=== PATIENT | female | born 1975 ===

== ENCOUNTER 2018-04-18 01:04 | Emergency (ER) | payer OTHER ==
[2018-04-18 01:27] VITALS: BP 103/57; PULSE 82; RESP 16; TEMP 97.7
[2018-04-18] MEDS ORDERED: Sodium Chloride 0.9% 1,000 ML IV STA (01:27)
[2018-04-18] MEDS ORDERED: Famotidine 20mg/50ml 20 MG/50 ML BAG IVPB ONE (01:33)
--- NOTE | 2018-04-18 01:48 | ED PDOC ---
HPI: Abdomen Time Seen by Provider: 04/18/18 01:08 Chief Complaint (Nursing): Abdominal Pain Chief Complaint (Provider): Abdominal Pain History Per: Patient History/Exam Limitations: no limitations Outside of [place] travel?: No Current Symptoms Are (Timing): Still Present Location Of Pain/Discomfort: Epigastric Quality Of Discomfort: Burning Associated Symptoms: denies: Fever, Vomiting Additional Complaint(s): 42 year old female presents to ED with complaints of abdominal pain x2 hours, is at 26 weeks, and has a past medical history of hypothyroidism, hypotension, and gestational diabetes. Patient describes the pain as burning and mid-epigastric. (-) fever, vomiting, vaginal bleeding, or pain. Patient notes that she has experienced intermittent gastritis since the beginning of this but that she has never had an episode last this long. PCP: Ady Bueno Abnormal Vaginal Bleeding: No : 3 Para: 2 Past Medical History Reviewed: Historical Data, Nursing Documentation, Vital Signs Vital Signs: Last Vital Signs Temp 97.7 F 04/18/18 01:23 Pulse 82 04/18/18 03:51 Resp 16 04/18/18 03:51 BP 103/57 L 04/18/18 03:51 Pulse Ox 100 04/18/18 03:51 - Medical History PMH: Diabetes (gestational), Gastritis Other PMH: hypotension - Surgical History Surgical History: No Surg Hx - Family History Family History: States: Unknown Family Hx - Living Arrangements Living Arrangements: With Family - Social History Current smoker - smoking cessation education provided: No Ex-Smoker (has not smoked in the last 12 months): No Alcohol: None Drugs: Denies - Home Medications Home Medications: Ambulatory Orders Medication Instructions Recorded Cephalexin [cephalexin] 500 mg PO BID #14 cap 09/02/16 Methylprednisolone [Medrol Dose 4 mg PO DAILY #21 mg 09/02/16 Pack (21 tabs)] Nystatin/Triamcinolone 1 appl TP BID #1 tube 09/02/16 [Nystatin/Triamcinolone Cream] Famotidine [Pepcid] 20 mg PO BID PRN #10 tab 04/18/18 - Allergies Allergies/Adverse Reactions: Allergies Allergy/AdvReac Type Severity Reaction Status Date / Time No Known Allergies Allergy Verified 03/21/15 19:22 Review of Systems ROS Statement: Except As Marked, All Systems Reviewed And Found Negative Constitutional: Negative for: Fever Gastrointestinal: Positive for: Abdominal Pain (mid-epigastric pain). Negative for: Vomiting Genitourinary Female: Negative for: Vaginal Bleeding, Pelvic Pain Physical Exam - Reviewed Nursing Documentation Reviewed: Yes Vital Signs Reviewed: Yes - Physical Exam Appears: Positive for: Non-toxic, No Acute Distress. Negative for: Uncomfortable Skin: Positive for: Normal Color, Warm, Dry Cardiovascular/Chest: Positive for: Regular Rate, Rhythm. Negative for: Murmur Respiratory: Positive for: Normal Breath Sounds. Negative for: Respiratory Distress Gastrointestinal/Abdominal: Positive for: Soft, Tenderness (mid-epigastric tenderness), Other ((+) gravid uterus). Negative for: Normal Exam Extremity: Positive for: Normal ROM. Negative for: Deformity Neurologic/Psych: Positive for: Alert, Oriented. Negative for: Motor/Sensory Deficits - Laboratory Results Result Diagrams: 04/18/18 01:44 04/18/18 01:44 - ECG O2 Sat by Pulse Oximetry: 97 (RA) Pulse Ox Interpretation: Normal Medical Decision Making Medical Decision Makin Initial impression: gastritis Initial plan: * Labs * Lipase * NS IV * Pepcid 20mg IVP * Re-eval [id number] Labs reviewed: no clinically significant abnormalities. Patient notes improvement in symptoms and is currently tolerating PO. Patient is stable for discharge home. Dx: gastritis in Scribe Attestation: Documented by Deyanira Awan, acting as a scribe for Shoshana Vitale MD. Provider Scribe Attestation: All medical record entries made by the Scribe were at my direction and personally dictated by me. I have reviewed the chart and agree that the record accurately reflects my personal performance of the history, physical exam, medical decision making, and the department course for this patient. I have also personally directed, reviewed, and agree with the discharge instructions and disposition. Disposition - Clinical Impression Clinical Impression: Gastritis - Patient ED Disposition Is Patient to be Admitted: No Counseled Patient/Family Regarding: Studies Performed, Diagnosis, Need For Followup - Disposition Disposition: Routine/Home Disposition Time: 03:40 Condition: IMPROVED Additional Instructions: follow up with your display designer outside return to the ED with any worsening or concerning symptoms avoid spicy or acidic foods take pepcid as needed Prescriptions: Famotidine [Pepcid] 20 mg PO BID PRN #10 tab PRN Reason: Heartburn Instructions: Gastritis (DC) Forms: [facility] (Georgian)
[2018-04-18 01:54] LABS: BASO # 0.1 K/uL (0.0-0.2); BASO % 0.8 % (0.0-2.0); EOS # 0.1 K/uL (0.0-0.7); HEMOGLOBIN 11.7 g/dL (12.0-16.0); LYMPH # 2.1 K/uL (1.0-4.3); LYMPH % 19.4 % (20.0-40.0); MEAN CELL VOLUME 85.9 fl (81.0-99.0); MEAN CORPUSCULAR HEMOGLOBIN 28.8 pg (27.0-31.0); MEAN CORPUSCULAR HGB CONC 33.6 g/dL (33.0-37.0); MEAN PLATELET VOLUME 10.1 fl (7.2-11.7); MONO # 0.8 K/uL (0.0-0.8); MONO % 6.8 % (0.0-10.0); NEUT # 7.9 K/uL (1.8-7.0); NRBC % 0.1 % (0.0-0.0); RBC 4.05 Mil/uL (3.80-5.20); RED CELL DISTRIBUTION WIDTH 15.1 % (11.5-14.5)
[2018-04-18 02:03] LABS: ALBUMIN 3.5 g/dL (3.5-5.0); ALT/SGPT 21 U/L (9-52); AST/SGOT 22 U/L (14-36); BLOOD UREA NITROGEN 14 mg/dl (7-17); CALCIUM 9.3 mg/dL (8.4-10.2); GFR AFRICAN-AMERICAN > 60; GFR NON-AFRICAN AMERICAN > 60; LIPASE 156 U/L (23-300)
[2018-04-18 04:00] LABS: SQUAMOUS EPITHIAL 2 /hpf (0-5); URINE BACTERIA RARE (<OCC); URINE BILIRUBIN NEGATIVE (NEGATIVE); URINE BLOOD NEGATIVE (NEGATIVE); URINE CLARITY SLIGHTY-CLOUDY (Clear); URINE COLOR STRAW (YELLOW); URINE GLUCOSE (UA) NEG (Normal); URINE LEUKOCYTE ESTERASE LARGE Leu/uL (Negative); URINE PROTEIN NEGATIVE (NEGATIVE); URINE UROBILINOGEN 0.2-1.0 mg/dL (0.2-1.0)
[2018-04-18 05:52] VITALS: O2SAT 97
== END 2018-04-18 04:24 | disposition home or self-care (01) ==
LOC: H.ER 01:04
DX: O99.612 Diseases of the digestive system complicating pregnancy, second trimester (principal); K29.70 Gastritis, unspecified, without bleeding
CPT/HCPCS: 80053; 81003; 83690; 85025; 87086; 96361; 96374; 99285; J7030

== ENCOUNTER 2018-04-18 04:20 | Inpatient (IN) | payer OTHER ==
[2018-04-18 06:36] VITALS: BMI 34.9
[2018-04-18] MEDS ORDERED: Lactated Ringer's 1,000 ML IV SCH (09:30)
--- NOTE | 2018-04-18 10:25 | US ---
PROCEDURE: Biophysical Profile Ultrasound HISTORY: non reassuring FHR COMPARISON: None available. FINDINGS: Biophysical Profile: breathing movements - 2. movements - 2. tones - 2. Amniotic fluid - 2. Total score: 8. The placenta appears anterior with a closed cervix. Cervical length measures 4.5 cm. No definite placental abruption or previa. A viable intrauterine gestation is identified in cephalic presentation. cardiac activity measures 130 beats per minute and NEGRA measures 21.87 cm. OTHER FINDINGS: None. IMPRESSION: biophysical profile score measures 8/8. Please see details above.
[2018-04-18] MEDS ORDERED: Betamethasone Soluspan 30 mg/5mL Inj Susp IM ONE (13:30)
[2018-04-18] MEDS ORDERED: Lactated Ringer's 1,000 ML IV PRN (22:21)
[2018-04-18] MEDS: Lactated Ringer's 1,000 ML IV SCH (23:30)
[2018-04-19] MEDS ORDERED: Betamethasone Soluspan 30 mg/5mL Inj Susp IM ONE ×3 (01:00→13:31)
[2018-04-19] MEDS: Lactated Ringer's 1,000 ML IV SCH ×2 (02:00→13:03)
[2018-04-19] MEDS ORDERED: Levothyroxine 25 MCG TAB PO SCH (06:30)
--- NOTE | 2018-04-19 08:38 | OBPN ---
Datetime: 04/18/2018 15:10 IP Procedures: Sterile Vag Exam IP Progress Plan: Continue present management Membranes, Provider: Intact Contraction Comments Provider: irregular FHR - Baseline A Provider: 120's IP Progress Note Comment: 42 yo at 35 weeks w/ h/o GDM on metformin, brought to [facility] after t reatment in ED for acid reflux. FHT overall reassuring w/ occasional decelerations. BPP 8/8 this am. Discussed case w/ Dr. Carlos lin who recommended steroids, 12 hours apart and to deliver her if the decelerations persist. NICHD Accel Fetus A IP Provider: 15X15 NICHD Variability Prov Fetus A: Moderate 6-25bpm Dilatation, Provider: 0 Effacement, Provider: 0 Station, Provider: -3 NICHD Decel Fetus A IP Provider: Late Datetime: 04/18/2018 05:05 Vital Signs Provider: Reviewed; Within Normal Limits FHR Category Provider Fetus A: Category I
--- NOTE | 2018-04-19 09:50 | OBADHP ---
Datetime: 04/19/2018 09:06 IP Chief Complaint Other: Nonreassuring tracing Admit Comment, IP Provider: 42 yo at 35+3 weeks w/ EDC 05/21/2018 seen in [facility] yesterday for obstertrical clearance after receiving pepcid in ED for acid reflux. Pt was admitted for observatio n d/t occasional late declerations. The case was discussed w/ Dr. Vanessa and it was recommended th at she be given steroids 12 hours apart and then induced if the decelerations persisted. Pt received her 1st dose dose of steroids at 1:30pm yesterday and her second dose at 8 am. Late deceleration oc curred throughout last night and so the plan is to induce the pt. This pt receives her care w/ [facility]. Pt has GDM, controlled w/ metformin. PMH: Hypothyroid, GDM PSH: None Meds: Metformin 500 BID, PNVs, current course of macrobid BID x7 days, PNVs, vit B12, levothyroxin e 25 mcg daily All: NKDA Fam hx: M-breast ca, F-HTN, high cholesterol, heart dz Soc hx: pt denies tobacco, alcohol, and illicit drug use OBhx: SAB in 05/2000 , FT male, 8#10 2004 SAB 10/2005 , FT male. 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 Pt has received steroids. Plan is to induce labor. GBS unknown. Extremities - PN: Normal Abdomen - PN: Normal Back - PN: Normal Lungs - PN: Normal Heart - PN: Normal FHR - Baseline A Provider: 120 Membranes, Provider: Intact Contraction Comments Provider: irregular Vital Signs Provider: Reviewed NICHD Variability Prov Fetus A: Moderate 6-25bpm NICHD Accel Fetus A IP Provider: [id number] NICHD Decel Fetus A IP Provider: Late Dilatation, Provider: 0 Effacement, Provider: 0 Station, Provider: -3 Genitourinary Exam: Normal IP Adm Impression: , intrauterine IP Admit Plan: Initiate labor induction protocol Datetime: 04/18/2018 05:05 Pelvic Type - PN: Adequate Breast - PN: Not Done Thyroid - PN: Normal Neurologic - PN: Normal HEENT - PN: Normal General - PN: Normal IP Chief Complaint: Other FHR Category Provider Fetus A: Category I DTRs - PN: Normal EGA AdmitDate IP: 35.0
--- NOTE | 2018-04-19 11:27 | NBCIR ---
Datetime: 04/19/2018 10:03 Preformed by:: Jesse Pham DO Circumcision Request: Yes Consent Signed: Written Consent Signed and on Chart Position: Supine; Papoose Board Circumcision Time Out: Correct Patient Identity; Correct Side and Site are Marked; Accurate Procedur e Consent Form; Agreement on Procedure to be Done; Correct Patient Position Site Prep: Povidine Iodine Circumcision Date/Time: 04/19/2018 11:10 Block/Anesthestics: Emla Cream Equipment Used: [employer] Clamp Dailey Size: 1.1 Systemic Medications: Oral Medication Other Systemic Medications: Sweet Ease Status: Excellent Cosmetic Outcome; Tolerated Procedure Well; Hemostatic Parents Present: None Procedure Note: Mother requested circumcisoin to be performed. Informed consent obtained. Circumci kraen performed under technical specialist cytogenetics. Infant tolerated well Datetime: 04/18/2018 04:20 PT-NAME: MARS COOK
--- NOTE | 2018-04-19 11:31 | OBHP ---
Datetime: 04/19/2018 11:24 IP Adm Impression: , intrauterine IP Admit Plan: Admit to unit Admit Comment, IP Provider: 42 yo under observation for occassional late decelerations last at 7:40 am and variable decelerations. Patient s/p Beta x2. Plan of care discussed with MFM Dr. Vanessa. As patient AMA, GDM and Hypothyroidism with continued decelerations, Plan is for delivery at this time Patient updated regarding plan of care Pelvic Type - PN: Adequate Extremities - PN: Normal Abdomen - PN: Normal Back - PN: Normal Breast - PN: Normal Lungs - PN: Normal Heart - PN: Normal Thyroid - PN: Normal Neurologic - PN: Normal HEENT - PN: Normal General - PN: Normal Presentation-Admit: Vertex Contraction Comments Provider: irregular Gestation - Est Wks by US: 35.1 EGA AdmitDate IP: 35.1 Vital Signs Provider: Reviewed IP Chief Complaint: evaluation NICHD Variability Prov Fetus A: Moderate 6-25bpm NICHD Accel Fetus A IP Provider: 15X15 NICHD Decel Fetus A IP Provider: Late Genitourinary Exam: Normal DTRs - PN: Normal Datetime: 04/19/2018 09:06 IP Chief Complaint Other: Nonreassuring tracing FHR - Baseline A Provider: 120 Membranes, Provider: Intact IP Indication for Induction: Indicated by Testing Dilatation, Provider: 0 Effacement, Provider: 0 Station, Provider: -3 Datetime: 04/18/2018 05:05 FHR Category Provider Fetus A: Category I
[2018-04-19] MEDS ORDERED: Penicillin G Potassium 5 MU in Sodium Chloride 0.9% 50 ML IVPB ONE (17:33)
--- NOTE | 2018-04-19 17:50 | OBHP ---
Datetime: 04/19/2018 11:42 IP Adm Impression: , intrauterine IP Admit Plan: Admit to unit Admit Comment, IP Provider: Patient with IUP at 35.3 wks, AMA with GDM and Hypothyroidism, --Case again reviewed with M Dr. Vanessa and tracing discussed. As patient with continued occassional late decel (last at 7:40 am) and variables[facility]. Patient s/p Betamethasone x 2. --Plan of care reviewed with patient and FOB and they agree. All questions answered. --Patient for admission and IOL at this time FHR - Baseline A Provider: 130 Membranes, Provider: Intact EGA AdmitDate IP: 35.3 Vital Signs Provider: Reviewed; Within Normal Limits IP Chief Complaint: evaluation NICHD Variability Prov Fetus A: Moderate 6-25bpm NICHD Accel Fetus A IP Provider: [id number] FHR Category Provider Fetus A: Category II NICHD Decel Fetus A IP Provider: Late; Variable Dilatation, Provider: 0
--- NOTE | 2018-04-19 18:23 | OBPN ---
Datetime: 04/19/2018 17:55 Pool Provider: Negative Contraction Comments Provider: 3-5m FHR - Baseline A Provider: 120 IP Fetus A Comments: Prolonged ?decel 5min with recovery on left side Presentation-Admit: Vertex IP Progress Note Comment: Pt given dose of cytotec at 5 PM; and started to feel contractions Notified decels, however, recovered Pt examined by Dr. Pham: closed Pt instructed to NPO Observe progress case dw Dr. Vero Siddiqi MD [facility]...notified of decel noted. She was given O2 and placed in left lateral posi tion. FH tracing recovered. WIll observe FH tracing. Hold Cytotec (given two doses)...[facility]ospital lily mmary : She was initially brought from ER yesterday morning and checked by Dr Fitzgerald. Decels noted an d monitored. Later in the morning, she was placed on OBSERVATION, BPP done and it was 8/8 but occasi onally decels persisted. MFM consulted by Dr Sales and Betamethasone x [address] Clayton-Bhavin luu also contacted him/start IOL. NICHD Accel Fetus A IP Provider: 15X15 FHR Category Provider Fetus A: Category II Dilatation, Provider: 0 Datetime: 04/19/2018 11:42 IP Progress Impression: Non-reassuring heart rate IP Informed Consent Obtain: Vaginal Delivery IP Procedures: Sterile Vag Exam IP Progress Plan: Induction Membranes, Provider: Intact Vital Signs Provider: Reviewed; Within Normal Limits NICHD Variability Prov Fetus A: Moderate 6-25bpm NICHD Decel Fetus A IP Provider: Late; Variable Datetime: 04/19/2018 11:24 Gestation - Est Wks by US: 35.3 Datetime: 04/19/2018 09:06 Effacement, Provider: 0 Station, Provider: -3
[2018-04-19] MEDS ORDERED: Oxytocin 30 units/LR 500ML 30 U/500 ML BAG IV ONE (18:33)
[2018-04-19] MEDS ORDERED: ceFAZolin IV 2 gm in Dextrose 2 GM/50 ML BAG IVPB ONE ×2 (18:35→18:45)
--- NOTE | 2018-04-19 18:41 | OBPN ---
Datetime: 04/19/2018 18:30 IP Informed Consent Obtain: Section Delivery; Risks, Benefits and Alternatives Discussed IP Progress Plan: Deliver- Section IP Progress Note Comment: Notified that another deceleration occured at 18:24pm lasting 4-5min... wi th decelrations remoted from delivery, I spoek with patient about her condition and deliveyr by C/S. She understands and informed cosent obtained. Prep for C/S
[2018-04-19] MEDS ORDERED: Morphine 1 mg/ml preservative-free Inj(Duramorph) ONE (18:42)
--- NOTE | 2018-04-19 19:19 | OBHP ---
Datetime: 04/19/2018 17:55 Presentation-Admit: Vertex IP Fetus A Comments: Prolonged ?decel 5min with recovery on left side FHR - Baseline A Provider: 120 Contraction Comments Provider: 3-5m Pool Provider: Negative NICHD Accel Fetus A IP Provider: 15X15 FHR Category Provider Fetus A: Category II Dilatation, Provider: 0 Datetime: 04/19/2018 11:42 EGA AdmitDate IP: 35.3 Datetime: 04/19/2018 11:24 Gestation - Est Wks by US: 35.3 Datetime: 04/18/2018 05:05 Admit Comment, IP Provider: 42 yo at 35+2 weeks w/ EDC 05/21/2018 was sent to [facility] for obste rtrical clearance after receiving pepcid in ED for acid reflux. Pt denies ctxns, LOF and VB and repo rts FM. This pt receives her care w/ [facility]. Pt has GDM, controlled w/ metformin. PMH: Hypothyroid, GDM PSH: None Meds: Metformin 500 BID, PNVs, current course of macrobid BID x7 days, PNVs, vit B12, levothyroxin e 25 mcg daily All: NKDA Fam hx: M-breast ca, F-HTN, high cholesterol, heart dz Soc hx: pt denies tobacco, alcohol, and illicit drug use OBhx: SAB in 05/2000 , FT male, 8#10 2005 SAB 10/2005 , FT male. 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 Will obtain BPP and follow the heart tracing.
[2018-04-19] MEDS ORDERED: Phenylephrine 10 mg/ml Inj ONE (19:22)
[2018-04-19] MEDS ORDERED: Oxycodone/Acetaminophen 5/325 mg Tab PO PRN ×2 (19:47→22:58)
[2018-04-19] MEDS ORDERED: DiphenhydrAMINE 50 mg/ml Inj IVP PRN ×2 (20:46→22:58)
[2018-04-19] MEDS ORDERED: Naloxone 0.4 mg/ml Inj (Adult) IVP PRN (20:46)
[2018-04-19] MEDS ORDERED: Lactated Ringer's 1,000 ML IV SCH (22:58)
[2018-04-20] MEDS: Levothyroxine 25 MCG TAB PO SCH (06:19)
[2018-04-20 06:47] LABS: HEMOGLOBIN 10.1 g/dL (12.0-16.0); MEAN CELL VOLUME 86.9 fl (81.0-99.0); MEAN CORPUSCULAR HEMOGLOBIN 28.4 pg (27.0-31.0); MEAN CORPUSCULAR HGB CONC 32.7 g/dL (33.0-37.0); RBC 3.56 Mil/uL (3.80-5.20); RED CELL DISTRIBUTION WIDTH 15.7 % (11.5-14.5); WHITE BLOOD COUNT 14.2 K/uL (4.8-10.8)
--- NOTE | 2018-04-20 08:22 | OBDS ---
DELIVERY PERSONNEL Delivery Doctor: Rebeca Pham DO Advanced Practice Psychiatric Nurse: Jamila Dodson RN Anesthesiologist: Kaylyn Mandel MD Resident: Dr. Siddiqi,OBR MATERNAL INFORMATION Delivery Anesthesia: Spinal Medications in Delivery: Pitocin 30 mu/500 mL, Pitocin 20 mu/1000 mL Estimated Blood Loss (ml): 800 Placenta Cultured: Yes Maternal Complications: Abruptio Placenta Other Maternal Complications: Early placenta Abruption RN Comments: Report taken in OR from Jamila Dodson RN and Eleni Newton to Harman wylie At 1925. Cord Blood PH asked to be taken by Dr Pham. Cord blood unavialable to obtain cord section from michele butler MD aware. Provider Comments: PreOp Dx: repetitive decelerations remote from delivery Post Op Dx same; early abruption Procedure: Primary LTCS via Pfannenstiel incision Surgeon Dr Pham Asst: Dr Turner Asst Dr Siddiqi Anest: Dr Mandel Anest: spinal Finding: -live male infant delivered from [facility] presentatoin/vacum assisted (one time/no pop off) -blood tinged AF -placenta delivered intact manually/uterus not exteriorized -Ovaries and tubes WNL -She remanied stable -all equipment, sponges and needles accounted for EBL 800cc LABOR SUMMARY EDC: 05/21/2018 00:00 No. Babies in Womb: 1 Attempted: No Labor Anesthesia: None LABOR INFORMATION Reason for Induction: Maternal Diabetes; Other Reason for Induction Other: deceleration Cervical Ripening Agents: Cytotec @ Oxytocin: N/A Group B Beta Strep: Done, Result Unknown Antibiotics # of Doses: 1 Antibiotics Time of Last Dose: 1900 Steroids Given: Full Course; < 24 Hours before Delivery Reason Steroids Not Administered: Indication MEMBRANES Membranes Rupture Method: Artificial Rupture of Membranes: 04/19/2018 19:08 Length of Rupture (hrs): 0.02 Amniotic Fluid Color: Clear Amniotic Fluid Amount: Moderate Amniotic Fluid Odor: None STAGES OF LABOR Stage 3 hrs: 0 Stage 3 min: 1 CSECTION DELIVERY Primary Indication: Nonreassuring Status Other Primary Indication: deceleratoin remote from delivery Secondary Indication: Early Abruptio Placenta CSection Urgency: Non Elective CSection Incidence: Primary Labor: No Labor Elective: Nonelective CSection Incision: Lower Uterine Transverse Uterine Closure: Double-layer closure BABY A INFORMATION Delivery Date/Time: 04/19/2018 19:09 Method of Delivery: Born in Route : No : N/A Forceps: N/A Vacuum Extraction: Successful Shoulder Dystocia : No ASSISTED DELIVERY BABY A Vacuum Number of Pulls: 1 Vacuum Number of PopOffs: 0 Total Time Vacuum Applied: 20 seconds Vacuum/Forceps Comment: kiwi applied in OR by Dr Turner at 190. Head delivered at 190. Baby boy d elivered at 1908. SHOULDER DYSTOCIA BABY A Infant Delivery Date/Time: 04/19/2018 19:09 PRESENTATION/POSITION BABY A Presentation: Cephalic Cephalic Presentation: Vertex Breech Presentation: N/A PLACENTA INFORMATION BABY A Placenta Delivery Time : 04/19/2018 19:10 Placenta Method of Delivery: Manual Removal Placenta Status: Delivered SCORES BABY A Heart Rate 1 min: >100 bpm Resp Effort 1 min: Good Cry Reflex Irritability 1 min: Cough or Sneeze or Pulls Away Muscle Tone 1 min: Active Motion Color 1 min: Body [place], Extremities Blue Resuscitation Effort 1 min: N/A SCORE 1 MIN: 9 Heart Rate 5 min: >100 bpm Resp Effort 5 min: Good Cry Reflex Irritability 5 min: Cough or Sneeze or Pulls Away Muscle Tone 5 min: Active Motion Color 5 min: Body [place], Extremities Blue Resuscitation Effort 5 min: N/A SCORE 5 MIN: 9 INFORMATION BABY A Gestational Age at Delivery: 35.0 Gestational Status: Outcome : Liveborn Infant Condition : Stable Sex: Male IDENTIFICATION/MEDS BABY A ID Band Number: [id number] ID Band Location: Left Leg; Left Arm WEIGHT/LENGTH BABY A Infant Birthweight (gms): 2770 Infant Weight (lb): 6 Infant Weight (oz): 2 CORD INFORMATION BABY A No. Cord Vessels: 3 Nuchal Cord : N/A Cord Blood Taken: Yes Infant Suction: Mouth; Nose ASSESSMENT BABY A Complications: Multiple Late Decels Physical Findings at Delivery: Within Normal Limits Aerospace Technician/ALS Called : No Infant Care By: DR Main Transferred To: Remains with Mother
--- NOTE | 2018-04-20 08:23 | OBDS ---
DELIVERY PERSONNEL Delivery Doctor: Rebeca Pham DO Commodity Lead: Jamila Dodson RN Anesthesiologist: Kaylyn Mandel MD Resident: Dr. Siddiqi,OBR MATERNAL INFORMATION Delivery Anesthesia: Spinal Medications in Delivery: Pitocin 30 mu/500 mL, Pitocin 20 mu/1000 mL Estimated Blood Loss (ml): 800 Placenta Cultured: Yes Maternal Complications: Abruptio Placenta Other Maternal Complications: Early placenta Abruption RN Comments: Report taken in OR from Jamila Dodson RN and Eleni Newton to [facility] wylie At 1925. Cord Blood PH asked to be taken by Dr Pham. Cord blood unavialable to obtain cord section from michele butler MD aware. Provider Comments: PreOp Dx: repetitive decelerations remote from delivery Post Op Dx same; early abruption Procedure: Primary LTCS via Pfannenstiel incision Surgeon Dr Pham Asst: Dr Turner Asst Dr Siddiqi Anest: Dr Mandel Anest: spinal Finding: -live male infant delivered from [facility] presentatoin/vacum assisted (one time/no pop off) -blood tinged AF -placenta delivered intact manually/uterus not exteriorized -Ovaries and tubes WNL -She remanied stable -all equipment, sponges and needles accounted for EBL 800cc LABOR SUMMARY EDC: 05/21/2018 00:00 EDC: 05/23/2018 00:00 No. Babies in Womb: 1 Attempted: No Labor Anesthesia: None LABOR INFORMATION Reason for Induction: Maternal Diabetes; Other Reason for Induction Other: deceleration Cervical Ripening Agents: Cytotec @ Oxytocin: N/A Group B Beta Strep: Done, Result Unknown Antibiotics # of Doses: 1 Antibiotics Time of Last Dose: 1900 Steroids Given: Full Course; < 24 Hours before Delivery Reason Steroids Not Administered: Indication MEMBRANES Membranes Rupture Method: Artificial Rupture of Membranes: 04/19/2018 19:08 Length of Rupture (hrs): 0.02 Amniotic Fluid Color: Clear Amniotic Fluid Amount: Moderate Amniotic Fluid Odor: None STAGES OF LABOR Stage 3 hrs: 0 Stage 3 min: 1 CSECTION DELIVERY Primary Indication: Nonreassuring Status Other Primary Indication: deceleratoin remote from delivery Secondary Indication: Early Abruptio Placenta CSection Urgency: Non Elective CSection Incidence: Primary Labor: No Labor Elective: Nonelective CSection Incision: Lower Uterine Transverse Uterine Closure: Double-layer closure BABY A INFORMATION Delivery Date/Time: 04/19/2018 19:09 Method of Delivery: Born in Route : No : N/A Forceps: N/A Vacuum Extraction: Successful Shoulder Dystocia : No ASSISTED DELIVERY BABY A Vacuum Number of Pulls: 1 Vacuum Number of PopOffs: 0 Total Time Vacuum Applied: 20 seconds Vacuum/Forceps Comment: kiwi applied in OR by Dr Turner at 190. Head delivered at 190. Baby boy d elivered at 190. SHOULDER DYSTOCIA BABY A Delivery Date/Time: 04/19/2018 19:09 PRESENTATION/POSITION BABY A Presentation: Cephalic Cephalic Presentation: Vertex Breech Presentation: N/A PLACENTA INFORMATION BABY A Placenta Delivery Time : 04/19/2018 19:10 Placenta Method of Delivery: Manual Removal Placenta Status: Delivered SCORES BABY A Heart Rate 1 min: >100 bpm Resp Effort 1 min: Good Cry Reflex Irritability 1 min: Cough or Sneeze or Pulls Away Muscle Tone 1 min: Active Motion Color 1 min: Body [place], Extremities Blue Resuscitation Effort 1 min: N/A SCORE 1 MIN: 9 Heart Rate 5 min: >100 bpm Resp Effort 5 min: Good Cry Reflex Irritability 5 min: Cough or Sneeze or Pulls Away Muscle Tone 5 min: Active Motion Color 5 min: Body [place], Extremities Blue Resuscitation Effort 5 min: N/A SCORE 5 MIN: 9 INFANT INFORMATION BABY A Gestational Age at Delivery: 35.0 Gestational Status: Infant Outcome : Liveborn Infant Condition : Stable Sex: Male IDENTIFICATION/MEDS BABY A ID Band Number: [id number] ID Band Location: Left Leg; Left Arm WEIGHT/LENGTH BABY A Infant Birthweight (gms): 2770 Infant Weight (lb): 6 Weight (oz): 2 CORD INFORMATION BABY A No. Cord Vessels: 3 Nuchal Cord : N/A Cord Blood Taken: Yes Suction: Mouth; Nose ASSESSMENT BABY A Complications: Multiple Late Decels Physical Findings at Delivery: Within Normal Limits Timber Treatment Plant Operator/ALS Called : No Care By: DR Main Transferred To: Remains with Mother
[2018-04-20] MEDS ORDERED: Multivitamin With Minerals Tab PO SCH (09:00)
[2018-04-20] MEDS: Multivitamin With Minerals Tab PO SCH (09:54)
[2018-04-20] MEDS ORDERED: Simethicone 80 mg Chewtab PO PRN (12:30)
--- NOTE | 2018-04-20 18:01 | OBPPN ---
Datetime: 04/20/2018 06:05 PP Pain Prov: Within normal limits PP Nausea Prov: Denies PP Flatus Prov: No PP BM Prov: No PP Breasts Prov: Normal PP Heart Prov: Normal PP Lungs Prov: Normal PP Abdomen/Uterus Prov: Normal PP Lochia Prov: Normal PP Vulva/Perineum Prov: Not Done PP CVA Tenderness Prov: Not Done PP Extremities Prov: Normal PP C/S Incision Prov: Normal PP Progress Prov: Normal PP Comments Phys Exam Prov: hgb 10.1 PP Impression Prov: Normal progression PP Plan Prov: Continue present management PP Progress Note Prov: S: Patient see and examined this morning at the bedside, laying comfortably o n bed. Pain is well controlled by medications, encourage ambulation, tolerating PO well. Dressing loo ks intact and clean, + gas but no BM yet. Patient denies too much bleeding. Denies chest pain, dyspne a, n/v, fever/chills, diarrhea, nausea/vomiting, and calf pain. VSS, afebrile Gen: Awake, alert. NAD Lungs: CTA B/L, no wheezing, rhonci, or rales CVS: RRR, S1, S2 no murmurs Abd: ND, -BS, soft abdomen, firm fundus at umbilical level. Dressing in place clean and intact. Ext: No edema, neg calf tenderness Neuro/psych: AAOx3, no grossly focal deficit, preserved affect and mood. A/P: 42 yo , s/p C- section on 04/19/18. Doing well on POD 1. -Advance diet as tolerated -OOB with caution SCDs for DVT prophylaxis -C/w Percocet 5/325 mg and Ibuprofen 600 mg for pain prn -C/w Colace 100mg PO BID PRN -Encourage and ambulation -PP H/H pending -Anticipated d/c on 04/22/18 YBecerra PGY-1 obh addendum pt seen and examined b me. agree with above assessment and plan. IP PP Procedures: None Vital Signs Provider PP: Reviewed; Within Normal Limits
[2018-04-20 18:12] LABS: SQUAMOUS EPITHIAL 1 /hpf (0-5); URINE BACTERIA RARE (<OCC); URINE BILIRUBIN NEGATIVE (NEGATIVE); URINE BLOOD MODERATE (NEGATIVE); URINE CLARITY SLIGHTY-CLOUDY (Clear); URINE COLOR STRAW (YELLOW); URINE GLUCOSE (UA) NEG (Normal); URINE LEUKOCYTE ESTERASE NEG Leu/uL (Negative); URINE PROTEIN NEGATIVE (NEGATIVE); URINE UROBILINOGEN 0.2-1.0 mg/dL (0.2-1.0)
[2018-04-21] MEDS: Docusate-Senna 50 mg-8.6 mg Tab PO SCH ×2 (06:11→06:33)
[2018-04-21] MEDS: Levothyroxine 25 MCG TAB PO SCH (06:32)
[2018-04-21] MEDS: Multivitamin With Minerals Tab PO SCH (08:10)
--- NOTE | 2018-04-21 08:41 | OP ---
PROCEDURE DATE: 04/19/2018 PREOPERATIVE DIAGNOSIS: Repetitive decelerations remote from delivery. POSTOPERATIVE DIAGNOSES: 1. Repetitive decelerations remote from delivery. 2. Early abruption. PROCEDURE: Primary low transverse section via Pfannenstiel incision. SURGEON: Arian Pham DO SIDE STAPLER: Rayo Turner MD (Dr. Rayo Turner is an HOME DAY CARE PROVIDER physician who happened to be available to assist on this difficult case. He was in the hospital. He was present during the procedure from the time of incision to delivery of the to the closure of the skin. His presence was vital and necessary for the procedure). SECOND SIDE STAPLER: Dr. Siddiqi, PGY-1 ANESTHESIOLOGIST: Dr. Mandel ANESTHESIA: Spinal. OPERATIVE FINDINGS: Live male delivered from the cephalic presentation with vacuum assistance once. No pop-off. Blood tinged amniotic fluid was noted. Placenta was delivered intact manually. Appeared to be an early abruption. Uterus is not exteriorized. Ovaries and tubes appeared to be within normal limits grossly. All equipments, sponges, and needle accounted for. She remained hemodynamically stable throughout the procedure. ESTIMATED BLOOD LOSS: 800 mL. DESCRIPTION OF PROCEDURE: was brought to the operating room. After successful spinal anesthesia, she was placed in a supine position. heart rate was noted to be above 154 beats per minute. Catheter placed in the bladder and noted to be draining clear urine. Compression boots were placed on both lower extremities. She was then draped and prepped in the usual sterile manner. Once adequate anesthesia was obtained, a Pfannenstiel incision was made using a scalpel. This incision was then taken down to underlying fascia using electrocautery. Fascia was nicked in the midline and extended bilaterally using electrocautery. Inferior aspect of the fascia was grasped using 2 Nemesio clamps and tented up, and the rectus muscle was both bluntly and sharply dissected. The same was done with the superior aspect of the fascia. In the midline superiorly, rectus muscle was noted to have an opening. This was bluntly dissected down to the suprapubic area. Two Sharonda clamps were used to tent up the peritoneum and then incised using Metzenbaum scissors. The incision was then extended superiorly and inferiorly with direct visualization of the bladder and intestines. A bladder blade was then inserted. An incision was made above the bladder line on the uterus and the peritoneum and using Metzenbaum scissors then extended bilaterally. Bladder blade was then inserted behind the bladder flap after it was created digitally. A low transverse incision was made using a scalpel. Upon entering the uterus, the incision was then extended bilaterally using bandage scissors. Noting the amniotic sac noted to be discolored. Once rupture of membranes was performed, blood tinged amniotic fluid was noted. The was then delivered. This was done by initially attempting to deliver the infant's head. Incision on the skin and the muscle was extended #1 on the skin using scalpel and then second using bandage scissors on rectus muscle. Thereafter, decision was made to use a Kiwi. Kiwi vacuum was then used one time, no pop-off. Infant head was delivered as atraumatically as possible. was crying spontaneously. Bulb suctioned nasopharyngeally. The remainder of the infant was then delivered as atraumatic as possible. was crying spontaneously. Cord was clamped and cut. Infant was handed to the pediatricians in attendance. Cord bloods were obtained as well as cord pH. Placenta was delivered and intact manually. Noted to be a sign of early abruption. Noted to have blood clot along the edge. Uterus was left into the peritoneal cavity. Lower uterine aspect was grasped using two T-clamps and two Allis clamps. Uterus cleared of debris and clots. Good contracted uterus was noted. A 0 Vicryl suture was used to close the first layer of the uterus in an interlocking fashion. Second layer of the uterus was closed using 0 Vicryl suture imbricating the first layer. Good hemostasis was assured. Copious irrigation was performed. We identified both ovaries and fallopian tubes bilaterally. Noted to be within normal limits. All equipment was removed and accounted for. Lower uterine segment was noted to have good hemostasis before closure. A 0 Vicryl suture was used to approximate the peritoneum in a running fashion. Rectus muscle was noted to have good hemostasis. A 0 Vicryl suture was used to approximate the rectus muscle on the left side in a [id number] fashion x2 as well as on the right side. Fascia was then approximated using 0 Vicryl suture in a running fashion. Irrigation was performed. Hemostasis was assured in subcuticular layer. A 2-0 plain suture was used to approximate the subcuticular layer x3. A 3-0 Vicryl suture was used to approximate the skin. Dermabond, Steri-Strips, and pressure bandage were applied. She tolerated the procedure well and was transferred to the recovery room in stable condition. All equipments, sponges and needles accounted for. Arian Pham DO
--- NOTE | 2018-04-21 15:28 | OBPPN ---
Datetime: 04/21/2018 06:12 PP Pain Prov: Within normal limits PP Nausea Prov: Denies PP Flatus Prov: Yes PP BM Prov: No PP Breasts Prov: Not Done PP Heart Prov: Normal PP Lungs Prov: Normal PP Abdomen/Uterus Prov: Normal PP Lochia Prov: Normal PP Vulva/Perineum Prov: Not Done PP CVA Tenderness Prov: Not Done PP Extremities Prov: Normal PP C/S Incision Prov: Normal PP Progress Prov: Normal PP Impression Prov: Normal progression PP Plan Prov: Continue present management PP Progress Note Prov: S: Patient see and examined this morning at the bedside, laying comfortably o n bed. Pain is well controlled by medications, encourage ambulation, tolerating PO well. Dressing rem raj yesterday, incision looks dry and clean. + gas but no BM yet. Patient denies too much bleeding. Denies chest pain, dyspnea, n/v, fever/chills, diarrhea, nausea/vomiting, and calf pain. VSS, afebrile Gen: Awake, alert. NAD Lungs: CTA B/L, no wheezing, rhonci, or rales CVS: RRR, S1, S2 no murmurs Abd: ND, -BS, soft abdomen, firm fundus at umbilical level. Incision c/d/i, no exudates or erythem a. Ext: No edema, neg calf tenderness Neuro/psych: AAOx3, no grossly focal deficit, preserved affect and mood. A/P: 42 yo , s/p C- section on 04/19/18. Doing well on POD 2. -Advance diet as tolerated -OOB with caution SCDs for DVT prophylaxis -C/w Percocet 5/325 mg and Ibuprofen 600 mg for pain prn -C/w Colace 100mg PO BID PRN -Encourage and ambulation -PP H/H 10.1/30.9 -Anticipated d/c on 04/22/18 YBecerra PGY-1 Patient seen and evaluated by me this am. Agree with above residdent note. --Dr. Gustavo Sheehan IP PP Procedures: None Vital Signs Provider PP: Reviewed; Within Normal Limits
[2018-04-22] MEDS: Docusate-Senna 50 mg-8.6 mg Tab PO SCH (02:31)
[2018-04-22] MEDS: Levothyroxine 25 MCG TAB PO SCH (06:29)
[2018-04-22] MEDS: Multivitamin With Minerals Tab PO SCH (08:11)
--- NOTE | 2018-04-22 09:12 | OBPPN ---
Datetime: 04/22/2018 06:02 PP Pain Prov: Within normal limits PP Nausea Prov: Denies PP Flatus Prov: Yes PP BM Prov: Yes PP Breasts Prov: Not Done PP Heart Prov: Normal PP Lungs Prov: Normal PP Abdomen/Uterus Prov: Normal PP Lochia Prov: Normal PP Vulva/Perineum Prov: Not Done PP CVA Tenderness Prov: Not Done PP Extremities Prov: Normal PP C/S Incision Prov: Normal PP Progress Prov: Normal PP Impression Prov: Normal progression PP Plan Prov: Discharge PP Progress Note Prov: S: Patient see and examined this morning at the bedside, laying comfortably o n bed. Pain is well controlled by medications, encourage ambulation, tolerating PO well. Voiding w/o difficulty and normal BM yesterday. Patient denies too much bleeding. Denies chest pain, dyspnea, n/v , fever/chills, diarrhea, nausea/vomiting, and calf pain. VSS, afebrile Gen: Awake, NAD Lungs: CTA B/L, no wheezing CVS: RRR, S1, S2 no murmurs Abd: soft, ND, +BS, uterus firm at umbilical level, incision C/D/I no exudates or bruises. Ext: No edema, neg calf tenderness Neuro/psych: AAOx3, no focal deficit, preserved affect and mood. A/P: 42 yo , s/p C- section on 18. Doing well on POD 3. -Regular diet as tolerated -OOB with caution -Percocet 5/325 mg and Ibuprofen 600 mg for pain prn -Colace 100mg PO BID PRN -Encourage and ambulation -PP H/H 10.1/30.9 -Discharge home today. Sanaz PGY-1 OB Hospitalist on-call. Pt seen and examined by me on rounds. Agree with PGY1 note [facility]NDO D/C home IP PP Procedures: None Vital Signs Provider PP: Reviewed; Within Normal Limits
--- NOTE | 2018-04-22 09:12 | OBDCSUM ---
Datetime: 04/22/2018 06:03 Discharged to, Provider: Home Follow up at, Provider: Dr Sheehan Disch Instr Activity: May Shower Disch Instr Diet: Regular Discharge Instructions, Provider: Routine instructions given Discharge Diagnosis, Provider: Delivery Discharge Time: 04/22/2018 10:00 Follow up in weeks, Provider: 1 and 6 weeks Disch Referrals: None Contraception discussed, Prov: Yes Disch Activity Restrictions: No exercising; No lifting; Minimize stair-climbing; No sexual activity; Nothing in vagina - [place], tampons, douche Discharge Comment, Provider: EGA: 35.2 weeks Diagnosis: epigastric pain, stat due to late decelerations RF: AMA, HTN, GDM DOL: 04/19/18 at 19:09 NB: M : 07[birth year] Weight: 2770 g PP summary: No serious complications during PP. Lochia= menses, mild pain, controlled with medicat ions. Rubella: immune. Blood type: O+ CBC pp: Discharge Date: 04/22/2018 at 10 am Discharge Instructions: -encourage -Ibuprofen/percocet for pain PRN -Senokot for constipation -Ambulate as tolerated -f/u NB visit and PP visit Discharge Diagnosis Prov Other: Decelrations remote from delivery Contraception after Delivery: Tubal Ligation
[2018-04-22 18:50] VITALS: BP 114/63; PULSE 77; RESP 20; TEMP 98.7; O2SAT 98
== END 2018-04-22 13:16 | disposition home or self-care (01) | DRG 651 ==
LOC: H.EROB2 04:20 → H.L&D 18:37 → OBSVTOIN 04-19 11:36 → H.L&D 04-19 13:03 → H.OB/GYN 04-19 22:27
PROVIDERS: ADMIT Obstetrics & Gynecology; ATTEND Obstetrics & Gynecology
PROC: 10D00Z1 Extraction of Products of Conception, Low, Open Approach (ICD-10-PCS; principal; 2018-04-19)
PROC: 4A1HXCZ Monitoring of Products of Conception, Cardiac Rate, External Approach (ICD-10-PCS; 2018-04-19)
DX: O60.14X0 Preterm labor third trimester with preterm delivery third trimester, not applicable or unspecified (principal); O45.93 Premature separation of placenta, unspecified, third trimester; O24.415 Gestational diabetes mellitus in pregnancy, controlled by oral hypoglycemic drugs; O76 Abnormality in fetal heart rate and rhythm complicating labor and delivery; O99.62 Diseases of the digestive system complicating childbirth; K21.9 Gastro-esophageal reflux disease without esophagitis; O99.284 Endocrine, nutritional and metabolic diseases complicating childbirth; E03.9 Hypothyroidism, unspecified; Z37.0 Single live birth; Z3A.35 35 weeks gestation of pregnancy; O09.523 Supervision of elderly multigravida, third trimester

== ENCOUNTER 2018-07-25 22:01 | Emergency (ER) | payer OTHER ==
[2018-07-25 22:02] VITALS: BMI 34.9
[2018-07-25 22:39] VITALS: RESP 18; TEMP 98.4
[2018-07-25] MEDS ORDERED: Sodium Chloride 0.9% 1,000 ML IV STA (22:50)
[2018-07-25 23:05] LABS: SQUAMOUS EPITHIAL 10 /hpf (0-5); URINE BACTERIA RARE (<OCC); URINE BILIRUBIN NEGATIVE (NEGATIVE); URINE BLOOD NEGATIVE (NEGATIVE); URINE CLARITY CLOUDY (Clear); URINE COLOR YELLOW (YELLOW); URINE GLUCOSE (UA) NEG (Normal); URINE LEUKOCYTE ESTERASE MOD Leu/uL (Negative); URINE PROTEIN 30 mg/dL (NEGATIVE); URINE UROBILINOGEN 0.2-1.0 mg/dL (0.2-1.0)
[2018-07-25 23:09] LABS: BASO # 0.1 K/uL (0.0-0.2); BASO % 0.7 % (0.0-2.0); EOS # 0.1 K/uL (0.0-0.7); EOS % 1.5 % (0.0-4.0); HEMOGLOBIN 13.1 g/dL (12.0-16.0); LYMPH # 2.5 K/uL (1.0-4.3); LYMPH % 30.1 % (20.0-40.0); MEAN CELL VOLUME 86.3 fl (81.0-99.0); MEAN CORPUSCULAR HEMOGLOBIN 29.4 pg (27.0-31.0); MEAN CORPUSCULAR HGB CONC 34.1 g/dL (33.0-37.0); MEAN PLATELET VOLUME 9.2 fl (7.2-11.7); MONO # 0.5 K/uL (0.0-0.8); MONO % 6.2 % (0.0-10.0); NEUT % 61.5 % (50.0-75.0); RBC 4.44 Mil/uL (3.80-5.20); RED CELL DISTRIBUTION WIDTH 15.6 % (11.5-14.5); WHITE BLOOD COUNT 8.2 K/uL (4.8-10.8)
--- NOTE | 2018-07-25 23:12 | ED PDOC ---
HPI: Female Pain Time Seen by Provider: 07/25/18 22:39 Chief Complaint (Nursing): Female Genitourinary Chief Complaint (Provider): abdominal pain History Per: Patient History/Exam Limitations: no limitations Onset/Duration Of Symptoms: Hrs (x20) Additional Complaint(s): Janette Price, a 42 year old female with past medical history of kidney stones, presents to the emergency department with constant right sided abdominal pain onset 20 hours ago. Patient states she vomited once and has moderate relief with Advil and says the pain is similar to that which she felt with kidney stones. She reports giving 3 months ago and is currently breast feeding. Patient denies constipation, diarrhea, dysuria or hematuria. No further medical complaints. Past Medical History Reviewed: Historical Data, Nursing Documentation, Vital Signs Vital Signs: Last Vital Signs Temp 98.4 F 07/25/18 22:33 Pulse 68 07/25/18 22:33 Resp 18 07/25/18 22:33 BP 122/82 07/25/18 22:33 Pulse Ox 99 07/25/18 22:33 - Medical History PMH: Diabetes (gestational), Gastritis, Kidney Stones Denies: Depression, HTN - Surgical History Surgical History: No Surg Hx - Family History Family History: States: Unknown Family Hx - Home Medications Home Medications: Ambulatory Orders Medication Instructions Recorded Cephalexin [cephalexin] 500 mg PO BID #14 cap 09/02/16 Methylprednisolone [Medrol Dose 4 mg PO DAILY #21 mg 09/02/16 Pack (21 tabs)] Nystatin/Triamcinolone 1 appl TP BID #1 tube 09/02/16 [Nystatin/Triamcinolone Cream] Famotidine [Pepcid] 20 mg PO BID PRN #10 tab 04/18/18 Naproxen [Naprosyn] 500 mg PO BID PRN #15 tablet 07/26/18 Nitrofurantoin Macrocrystals 100 mg PO BID #13 cap 07/26/18 [Macrobid] - Allergies Allergies/Adverse Reactions: Allergies Allergy/AdvReac Type Severity Reaction Status Date / Time No Known Allergies Allergy Verified 03/21/15 19:22 Review of Systems ROS Statement: Except As Marked, All Systems Reviewed And Found Negative Constitutional: Negative for: Fever Gastrointestinal: Positive for: Vomiting (1 episode), Abdominal Pain (right sided). Negative for: Constipation Genitourinary Female: Negative for: Dysuria, Hematuria Physical Exam - Reviewed Nursing Documentation Reviewed: Yes Vital Signs Reviewed: Yes - Physical Exam Appears: Positive for: Well, Non-toxic, No Acute Distress Head Exam: Positive for: ATRAUMATIC, NORMAL INSPECTION, NORMOCEPHALIC Cardiovascular/Chest: Positive for: Regular Rate, Rhythm Respiratory: Positive for: Normal Breath Sounds. Negative for: Respiratory Distress Gastrointestinal/Abdominal: Positive for: Tenderness (right lateral). Negative for: Guarding, Rebound Back: Negative for: L CVA Tenderness, R CVA Tenderness Neurologic/Psych: Positive for: Alert, Oriented - Laboratory Results Result Diagrams: 07/25/18 23:00 07/25/18 23:00 - ECG O2 Sat by Pulse Oximetry: 99 (RA) Pulse Ox Interpretation: Normal Medical Decision Making Medical Decision Making: Time: 22:39 Initial Impression: right sided abdominal pain Initial Plan: --CT abd/pelvis --CMP -- test --CBC w/ differential --Morphine 2 mg IV --Sodium chloride 1000 IV --Zofran inj 4 mg IV --Urine culture --Urinalysis Scribe Attestation: Documented by Marlin Herman, acting as a scribe for Leta Perry MD. Provider Scribe Attestation: All medical record entries made by the Scribe were at my direction and personally dictated by me. I have reviewed the chart and agree that the record accurately reflects my personal performance of the history, physical exam, m edical decision making, and the department course for this patient. I have also personally directed, reviewed, and agree with the discharge instructions and disposition. Disposition - Clinical Impression Clinical Impression: Urinary tract infection, Cholelithiasis - Disposition Referrals: [facility] [Outside] Disposition: Routine/Home Disposition Time: 00:12 Condition: STABLE Prescriptions: Naproxen [Naprosyn] 500 mg PO BID PRN #15 tablet PRN Reason: Pain, Moderate (4-7) Nitrofurantoin Macrocrystals [Macrobid] 100 mg PO BID #13 cap Instructions: Urinary Tract Infections in Adults, Gallstones Forms: [employer] (Kiswahili) Print Language: PALAUAN
[2018-07-25 23:18] LABS: ALB/GLOB RATIO 1.2 (1.0-2.1); ALT/SGPT 56 U/L (9-52); AST/SGOT 61 U/L (14-36); BLOOD UREA NITROGEN 12 mg/dl (7-17); CALCIUM 9.5 mg/dL (8.4-10.2); GFR NON-AFRICAN AMERICAN > 60
[2018-07-25] MEDS ORDERED: Potassium Chloride 20 mEq ER Tab PO STA (23:19)
[2018-07-26] MEDS ORDERED: Potassium Chloride 20 mEq ER Tab PO ONE (00:32)
[2018-07-26 00:38] VITALS: BP 118/65; PULSE 70
--- NOTE | 2018-07-26 12:36 | CT ---
Date of service: 07/25/2018 PROCEDURE: CT Abdomen and Pelvis without intravenous contrast HISTORY: R side pain, h/o kidney stones COMPARISON: CT scan of the abdomen pelvis dated 02/28/2014 TECHNIQUE: Contiguous images were obtained from the domes of the diaphragms to the upper thighs without the administration of intravenous contrast. Oral contrast was not administered. Radiation dose: Total exam DLP = 450.6 mGy-cm. This CT exam was performed using one or more of the following dose reduction techniques: Automated exposure control, adjustment of the mA and/or kV according to patient size, and/or use of iterative reconstruction technique. FINDINGS: LOWER THORAX: Unremarkable. LIVER: Unremarkable. No gross lesion or ductal dilatation. GALLBLADDER AND BILE DUCTS: Calcified cholelithiasis without gallbladder wall thickening or pericholecystic fluid.. PANCREAS: Unremarkable. No gross lesion or ductal dilatation. SPLEEN: Unremarkable. ADRENALS: Unremarkable. No mass. KIDNEYS AND URETERS: Bilateral nonobstructive nephrolithiasis, the largest on the right measures up to 8 mm in the interpolar region and the largest on the left measures up to 6 mm in the mid/lower pole. No hydronephrosis. No solid mass. VASCULATURE: Unremarkable. No aortic aneurysm. BOWEL: Unremarkable. No obstruction. No gross mural thickening. APPENDIX: Unremarkable. Normal appendix. PERITONEUM: Small fat containing umbilical hernia. No free fluid. No free air. LYMPH NODES: Unremarkable. No enlarged lymph nodes. BLADDER: Unremarkable. REPRODUCTIVE: Unremarkable. BONES: No acute fracture. OTHER FINDINGS: None. IMPRESSION: Bilateral nonobstructive nephrolithiasis as above described. Cholelithiasis without CT evidence of acute cholecystitis. Additional stable findings as above.
[2018-08-18 10:12] VITALS: O2SAT 99
== END 2018-07-26 00:44 | disposition home or self-care (01) ==
LOC: H.ER 22:01
DX: R10.9 Unspecified abdominal pain (principal); N39.0 Urinary tract infection, site not specified; Z87.442 Personal history of urinary calculi; K80.20 Calculus of gallbladder without cholecystitis without obstruction; Z79.899 Other long term (current) drug therapy
CPT/HCPCS: 74176; 80053; 81003; 81025; 85025; 87086; 87181; 96360; 99284; J2270; J2405; J7030